=== PATIENT | male | born 1960 | race Caucasian/White ===

== ENCOUNTER → 2017-03-04 | Outpatient (CLI) | payer OTHER ==
[~2017-03-04] MED LIST: ANTIVERT25 MG PO; ASACOL400 MG PO; FLAGYL500 MG PO; LIALDA1.2 GM PO; NORCO 5-325 TA1 EACH PO; ZOFRAN ODT4 MG PO
[2017-03-04 13:46] LABS: ABSOLUTE BASOPHILS 0.1 thou/uL (0.0-0.2); ABSOLUTE EOSINOPHILS 0.1 thou/uL (0.0-0.7); ABSOLUTE LYMPHOCYTES 0.5 thou/uL (0.8-5.3); ABSOLUTE MONOCYTES 0.5 thou/uL (0.0-1.2); ABSOLUTE NEUTROPHILS 3.8 thou/uL (1.6-8.1); BASOPHILS 1.4 %; HEMATOCRIT 40.7 % (42.0-52.0); HEMOGLOBIN 13.7 gm/dL (14.0-18.0); LYMPHOCYTES 10.4 %; MCH 29.8 pg (26.0-34.0); MCHC 33.7 g/dL (28.0-37.0); MCV 88.3 fL (80.0-100.0); MONOCYTES 10.7 %; MPV 6.5 fl. (7.2-11.1); NUCLEATED RBCS 0 /100WBC; PLATELET COUNT* 260 thou/uL (150-400); POLYS 75.5 %; RBC 4.61 mil/uL (4.50-6.00); RDW-CV 14.1 % (10.5-14.5)
[2017-03-04 13:56] LABS: ALBUMIN 2.2 g/dL (3.4-5.0); CREATININE 1.1 mg/dL (0.6-1.3); POTASSIUM 4.2 mmol/L (3.5-5.1); TOTAL BILIRUBIN 0.3 mg/dL (<0.1-1.0); TOTAL PROTEIN 4.9 g/dL (6.4-8.2)
== END ==
LOC: M.LAB 13:25
PROVIDERS: Specialist
DX: K50.90 Crohn's disease, unspecified, without complications (principal)

== ENCOUNTER → 2018-11-17 | Outpatient (CLI) | payer OTHER ==
[2018-11-17 08:28] LABS: ABSOLUTE BASOPHILS 0.1 thou/uL (0.0-0.2); ABSOLUTE EOSINOPHILS 0.1 thou/uL (0.0-0.7); ABSOLUTE LYMPHOCYTES 0.5 thou/uL (0.8-5.3); ABSOLUTE MONOCYTES 0.6 thou/uL (0.0-1.2); BASOPHILS 1.1 %; EOSINOPHILS 2.1 %; HEMATOCRIT 45.6 % (42.0-52.0); HEMOGLOBIN 15.3 gm/dL (14.0-18.0); LYMPHOCYTES 8.9 %; MCH 29.2 pg (26.0-34.0); MCHC 33.6 g/dL (28.0-37.0); MCV 86.9 fL (80.0-100.0); MONOCYTES 11.9 %; MPV 6.4 fl. (7.2-11.1); NUCLEATED RBCS 0 /100WBC; PLATELET COUNT* 356 thou/uL (150-400); RBC 5.25 mil/uL (4.50-6.00); RDW-CV 14.6 % (10.5-14.5); WBC 5.3 thou/uL (4.0-11.0)
[2018-11-17 08:40] LABS: ALBUMIN 2.3 g/dL (3.4-5.0); CALCIUM 8.2 mg/dL (8.5-10.1); CREATININE 1.3 mg/dL (0.6-1.3); POTASSIUM 4.7 mmol/L (3.5-5.1); TOTAL BILIRUBIN 0.5 mg/dL (<0.1-1.0); TOTAL PROTEIN 5.4 g/dL (6.4-8.2)
[2018-11-17 09:29] LABS: ESR (SEDRATE) 2 mm/hr (0-20)
== END ==
LOC: M.LAB 07:53
PROVIDERS: Specialist
DX: K50.90 Crohn's disease, unspecified, without complications (principal)

== ENCOUNTER → 2019-01-17 | Outpatient (CLI) | payer OTHER ==
[2019-01-17 13:22] LABS: ALBUMIN 2.3 g/dL (3.4-5.0); CALCIUM 8.1 mg/dL (8.5-10.1); CREATININE 1.3 mg/dL (0.6-1.3); POTASSIUM 4.9 mmol/L (3.5-5.1); TOTAL BILIRUBIN 0.4 mg/dL (<0.1-1.0); TOTAL PROTEIN 4.9 g/dL (6.4-8.2)
== END ==
LOC: M.LAB 12:34
PROVIDERS: Specialist
DX: K50.90 Crohn's disease, unspecified, without complications (principal)

== ENCOUNTER → 2019-11-29 | Outpatient (CLI) | payer OTHER ==
[2019-11-29 11:57] LABS: ABSOLUTE BASOPHILS 0.1 thou/uL (0.0-0.2); ABSOLUTE EOSINOPHILS 0.1 thou/uL (0.0-0.7); ABSOLUTE LYMPHOCYTES 0.5 thou/uL (0.8-5.3); ABSOLUTE MONOCYTES 0.6 thou/uL (0.0-1.2); ABSOLUTE NEUTROPHILS 3.3 thou/uL (1.6-8.1); BASOPHILS 2.2 %; EOSINOPHILS 2.4 %; HEMATOCRIT 42.2 % (42.0-52.0); HEMOGLOBIN 14.1 gm/dL (14.0-18.0); LYMPHOCYTES 10.5 %; MCH 29.2 pg (26.0-34.0); MCHC 33.3 g/dL (28.0-37.0); MCV 87.5 fL (80.0-100.0); MONOCYTES 13.2 %; MPV 6.4 fl. (7.2-11.1); NUCLEATED RBCS 0 /100WBC; PLATELET COUNT* 297 thou/uL (150-400); POLYS 71.7 %; RBC 4.82 mil/uL (4.50-6.00); RDW-CV 14.4 % (10.5-14.5); WBC 4.6 thou/uL (4.0-11.0)
[2019-11-29 12:10] LABS: ALBUMIN 2.3 g/dL (3.4-5.0); CALCIUM 7.7 mg/dL (8.5-10.1); CREATININE 1.3 mg/dL (0.6-1.3); DIRECT BILIRUBIN 0.1 mg/dL (<0.1-0.3); POTASSIUM 4.4 mmol/L (3.5-5.1); TOTAL BILIRUBIN 0.4 mg/dL (<0.1-1.0); TOTAL PROTEIN 5.2 g/dL (6.4-8.2)
== END ==
LOC: M.LAB 11:18
DX: K50.90 Crohn's disease, unspecified, without complications (principal); R79.89 Other specified abnormal findings of blood chemistry